=== PATIENT | male | born 1950 | race Caucasian/White ===

== ENCOUNTER 2016-10-30 19:52 | Emergency (ER) | payer BC ==
[~2016-10-30] VITALS: Ht 188 cm; Wt 86.2 kg
[2016-10-30] MEDS ORDERED: AUGMENTIN 875-1 EAC1 ORAL (20:26)
--- NOTE | 2016-10-30 20:27 | Emergency Room Report ---
History of Present Illness General Chief Complaint: Animal Bite Source: Patient Present Illness [facility] This is a 65-year-old male who is right-hand dominant. He presents with a cat bite and scratch on his right forearm and left index finger. Onset was about 40 minutes ago. He had rescue a cat from his neighbor. It has been living in a cage. It has kittens. He has taking it to the event to be neutered and shots up-to-date. He was feeding the cat today and when the cat would not go back to his cage, he picked up the cat. The cat bit him on his left index finger and when he jerked back for cat scratch and bit him on the right forearm. It was bleeding but better now. No other injury. Allergies: Coded Allergies: No Known Allergies (Unverified , 10/30/16) Patient History Past Medical History: see triage record, old chart reviewed Past Surgical History: other Pertinent Family History: none Social History: Denies: drug use Immunizations: other Reviewed Nursing Documentation: PMH: Agreed, PSxH: Agreed Nursing Documentation-PMH Past Medical History: No Stated History Review of Systems Eye: Denies: blurred vision, eye pain ENT: Denies: ear pain, nose congestion, throat swelling Respiratory: Denies: cough, shortness of breath Cardiovascular: Denies: chest pain, palpitations Gastrointestinal: Denies: abdominal pain, diarrhea, nausea, vomiting Musculoskeletal: Denies: back pain, joint pain Skin: Denies: rash Neurological: Denies: headache, numbness Endocrine: Denies: increased thirst, increased urine Hematologic/Lymphatic: Denies: easy bruising All Other Systems: negative except mentioned in HPI Physical Exam Vital Signs Date Time Temp Pulse Resp B/P Pulse Ox O2 Delivery O2 Flow Rate FiO2 10/30/16 19:58 98.1 70 18 145/101 96 Room Air vitals with high blood pressure Sp02 EP Interpretation: reviewed, normal General Appearance: well appearing, no apparent distress, alert Head: normocephalic, atraumatic Eyes: bilateral eye EOMI, bilateral eye PERRL ENT: hearing grossly normal, normal pharynx Neck: full range of motion, supple, no meningismus Respiratory: chest non-tender, lungs clear, normal breath sounds Cardiovascular #1: regular rate, rhythm, no murmur Gastrointestinal: normal bowel sounds, non tender, no mass, no organomegaly, no bruit, non-distended Musculoskeletal: back normal, gait/station normal, normal range of motion, other - Puncture wound to the dorsum of the left index finger. full range of motion of the MCP, PIP, DIP joint. Sensation normal. Neurologic: alert, oriented x3 Psychiatric: mood/affect normal Skin: warm/dry Medical Decision Making Diagnostic Impression: Primary Impression: Cat bite of forearm Qualified Codes: S51.851A - Open bite of right forearm, initial encounter; W55.01XA - Bitten by cat, initial encounter Additional Impression: Cat bite of index finger Qualified Codes: S61.258A - Open bite of other finger without damage to nail, initial encounter; W55.01XA - Bitten by cat, initial encounter ER Course Patient with cat bite and scratches to the extremities. Increased risk for infection. Wound cleaned and dressed. Antibiotic initiated. unlikely to get rabies. We'll discharge home. Last Vital Signs Date Time Temp Pulse Resp B/P Pulse Ox O2 Delivery O2 Flow Rate FiO2 10/30/16 19:58 98.1 70 18 145/101 96 Room Air Status: improved Disposition: HOME, SELF-CARE Condition: Stable Scripts Amoxicillin/Potassium Clav 875-125* (AUGMENTIN 875-125 TABLET*) 1 Each Tablet 1 TAB ORAL TWICE A DAY, #14 TAB Prov: JOSIE LARA M.D. 10/30/16 Additional Instructions: followup with your DrBenji in 7 days. Return it worse. JOSIE LARA M.D. Oct 30, 2016 20:27
[2016-10-30] MEDS ORDERED: Augmentin 875mg Tab ORAL ONE (20:30)
[2016-10-30] MEDS ORDERED: Tetanus/Diptheria/Pertussis Vaccine 0.5ml Syr IM ONE (20:30)
[2016-10-30] MEDS ORDERED: Bacitracin Oint UD TOPIC ONE (20:30)
[2016-10-30 20:46] VITALS: BP 145/101
[2016-10-30 20:56] VITALS: BP 145/101
== END 2016-10-30 20:45 | disposition home or self-care (01) ==
LOC: EMR 20:35
DX: S51.851A Open bite of right forearm, initial encounter (principal); S61.258A Open bite of other finger without damage to nail, initial encounter; Z23 Encounter for immunization; Y93.9 Activity, unspecified; W55.01XA Bitten by cat, initial encounter; Y92.9 Unspecified place or not applicable
CPT/HCPCS: 90471; 90715; 96372; 99283